=== PATIENT | female | born 1960 | race American Indian/Alaskan Native ===

== ENCOUNTER 2017-05-15 16:55 | Inpatient (IN) | payer MEDICAID, OTHER ==
[2017-05-15 18:43] LABS: BASO # 0.1 K/uL (0.0-0.2); BASO % 0.9 % (0.0-2.0); EOS % 0.6 % (0.0-4.0); HEMATOCRIT 35.8 % (34.0-47.0); LYMPH # 0.8 K/uL (1.0-4.3); LYMPH % 11.4 % (20.0-40.0); MEAN CELL VOLUME 87.3 fL (81.0-99.0); MEAN CORPUSCULAR HEMOGLOBIN 28.7 pg (27.0-31.0); MEAN CORPUSCULAR HGB CONC 32.9 g/dL (33.0-37.0); MEAN PLATELET VOLUME 7.9 fL (7.2-11.7); MONO # 0.5 K/uL (0.0-0.8); MONO % 7.7 % (0.0-10.0); NRBC % 0.1 % (0.0-2.0); RED CELL DISTRIBUTION WIDTH 16.1 % (11.5-14.5); WHITE BLOOD COUNT 7.1 K/uL (4.8-10.8)
[2017-05-15 18:59] LABS: ALCOHOL SERUM < 10 mg/dl (0-10); ALKALINE PHOSPHATASE 124 U/L (38-126); ALT/SGPT 38 U/L (9-52); AST/SGOT 33 U/L (14-36); BILIRUBIN,TOTAL 0.7 mg/dL (0.2-1.3); BLOOD UREA NITROGEN 14 mg/dL (7-17); CALCIUM 9.6 mg/dl (8.6-10.4); CARBON DIOXIDE 25 mmol/L (22-30); CHLORIDE 105 mmol/L (98-107); GFR AFRICAN-AMERICAN > 60; GLUCOSE,RANDOM 83 mg/dL (65-105); POTASSIUM 3.7 mmol/L (3.6-5.2); SODIUM 136 mmol/L (132-148); TOTAL PROTEIN 9.3 g/dL (6.3-8.3)
[2017-05-15 19:04] LABS: ALB/GLOB RATIO 0.8 (1.0-2.1)
[2017-05-15 19:23] LABS: RBC URINE 6 /hpf (0-3); TRANSITIONAL EPITHIAL < 1 /hpf (0-3); URINE BACTERIA OCC (<OCC); URINE BILIRUBIN NEGATIVE (NEGATIVE); URINE BLOOD 1+ (NEGATIVE); URINE COLOR Yellow (YELLOW); URINE GLUCOSE (UA) NORMAL (Normal); URINE KETONE NEGATIVE (NEGATIVE); URINE LEUKOCYTE ESTERASE 2+ Leu/uL (Negative); URINE PROTEIN NEGATIVE (NEGATIVE); URINE UROBILINOGEN NORMAL mg/dL (0.2-1.0); WBC URINE 22 /hpf (0-5)
--- NOTE | 2017-05-15 20:55 | C.PDOC ---
History Of Present Illness 57 year old female with previous Hx of cervical cancer presents to the ED requesting detox for cocaine and ETOH. Patient has been in and out of the hospital recently for CP, reports no CP right now. Patient also c/o painful urination. Patient denies any SI/HI, auditory or visual hallucinations. Time Seen by Provider: 05/15/17 17:48 Chief Complaint (Nursing): Substance Abuse History Per: Patient History/Exam Limitations: no limitations Onset/Duration Of Symptoms: Days Current Symptoms Are (Timing): Gone Suicide/Self Injury Attempted (Context): None Modifying Factor(s): Alcohol, Cocaine Associated Symptoms: denies: Depression, Suicidal Thoughts, Suicidal Plan Recent travel outside of the [place]: No Additional History Per: Patient Past Medical History Reviewed: Historical Data, Nursing Documentation, Vital Signs Vital Signs: Last Vital Signs Temp 98.4 F 05/15/17 17:38 Pulse 56 L 05/15/17 17:38 Resp 18 05/15/17 17:38 BP 118/76 05/15/17 17:38 Pulse Ox 99 05/15/17 21:00 - Medical History PMH: Anemia, Anxiety, CVA, Depression, HTN, Hypercholesterolemia, Schizophrenia , Seizures (ETOH) Denies: Diabetes, Hepatitis, HIV, Chronic Kidney Disease, Sexually Transmitted Disease Surgical History: No Surg Hx Family History: States: Unknown Family Hx - Social History Hx Tobacco Use: No Hx Alcohol Use: Yes Hx Substance Use: Yes (Cocaine) - Immunization History Hx Tetanus Toxoid Vaccination: No Hx Influenza Vaccination: No Hx Pneumococcal Vaccination: No Review Of Systems Constitutional: Negative for: Fever, Chills Cardiovascular: Negative for: Chest Pain Respiratory: Negative for: Cough, Shortness of Breath Gastrointestinal: Negative for: Nausea, Vomiting, Abdominal Pain Genitourinary: Negative for: Incontinence Skin: Negative for: Rash Neurological: Negative for: Weakness, Numbness Psych: Negative for: Depression, Suicidal ideation Physical Exam - Physical Exam Appears: Non-toxic, No Acute Distress Skin: Normal Color, Warm, Dry Head: Atraumatic, Normacephalic Oral Mucosa: Moist Neck: Supple Chest: Symmetrical Cardiovascular: Rhythm Regular, No Murmur Respiratory: Normal Breath Sounds, No Rales, No Rhonchi, No Wheezing Gastrointestinal/Abdominal: Soft, Tenderness (Mild superpubic ), No Guarding, No Rebound Back: No CVA Tenderness Extremity: Normal ROM, No Deformity, No Swelling Neurological/Psych: Oriented x3, Normal Speech, Normal Cognition ED Course And Treatment - Laboratory Results Result Diagrams: 05/15/17 18:35 05/15/17 18:35 O2 Sat by Pulse Oximetry: 99 (On RA) Pulse Ox Interpretation: Normal Medical Decision Making Medical Decision Making: pt is medically cleared for detox admission; pt has uti, recommend cipro 500 mg by mouth every 12 hours for 5 days. 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 - Scribe Statement The provider has reviewed the documentation as recorded by the Scribe Jose Fleming All medical record entries made by the Scribe were at my direction and personally dictated by me. I have reviewed the chart and agree that the record accurately reflects my personal performance of the history, physical exam, medical decision making, and the department course for this patient. I have also personally directed, reviewed, and agree with the discharge instructions and disposition. Decision To Admit - Pt Status Changed To: Hospital Disposition Of: Inpatient - Admit Certification Admit to Inpatient:: After my assessment, the patient will require hospitalization for at least two midnights. This is because of the severity of symptoms shown, intensity of services needed, and/or the medical risk in this patient being treated as an outpatient. - InPatient: Physician Admission Certification: I certify that this patient requires 2 or more midnights of care for the following reason:: for drug detox - . Bed Request Type: Detox Admitting Physician: Quita Ornelas Patient Diagnosis: Cocaine abuse, Alcohol use disorder, severe, dependence, UTI (urinary tract infection)
[2017-05-16] MEDS: Multiple Vitamins Tab PO SCH (10:10)
--- NOTE | 2017-05-16 10:12 | PCM.PSYCH ---
Initial Psychiatric Evaluation - Initial Psychiatric Evaluation Type of Admission: Voluntary Legal Status: Capacity Chief Complaint (in patient's own words): "I'm ready to stop drugs" History of Present Illness and Precipitating Events: Pt is a 57 y/o -[place] female who is here for alcohol detox. Pt is single with 34 y/o daughter. Pt is unemployed and is receiving disability. Pt claims she consumes a "case of beer" everyday for an unspecified amount of time. Pt states that she also uses "too much" cocaine for everyday for the past 6 years. Pt denies opioid, marijuana, and benzo use. Pt stated that she has not been to rehab before and this is the first time she has been to detox. Pt appears in good spirits and appears to want to stop drinking alcohol and using cocaine. Pt is interested in attending an IOP after discharge. [facility] in [place] was discussed with the patient. She has minmal wdw sxs at this point and no hx of seizures or DTs. Past Medical HX: Cervical CA, CVA x4, HTN, Low Bone Marrow, Incontinent Bowels/ Urine Past Psychiatric HX: Anxiety, Depression Family Psychiatric HX: Denies Current Medications: Active Medications Generic Name Dose Route Start Last Admin Trade Name Freq PRN Reason Stop Dose Admin Chlordiazepoxide 25 mg 05/15/17 22:30 05/16/17 00:21 Librium PO 25 mg Q4H PRN Administration Alcohol Withdrawal Ciprofloxacin 500 mg 05/16/17 10:00 Cipro PO BID BRENNA Folic Acid 1 mg 05/16/17 10:00 Folic Acid PO DAILY BRENNA Hydroxyzine HCl 25 mg 05/16/17 00:04 05/16/17 00:21 Atarax PO 25 mg Q6H PRN Administration Anxiety Multivitamins 1 tab 05/16/17 10:00 Hexavitamin PO DAILY BRENNA Thiamine HCl 100 mg 05/16/17 10:00 Vitamin B1 Tab PO DAILY BRENNA Trazodone HCl 50 mg 05/15/17 22:30 05/16/17 00:21 Desyrel PO 50 mg HS PRN Administration Insomnia Past Psychiatric History - Past Psychiatric History Previous Treatment History: Intensive Outpatient Pertinent Medical Hx (Current Medical&Sleep Prob, Allergies): Allergies Allergy/AdvReac Type Severity Reaction Status Date / Time Penicillins Allergy Intermediate RASH Verified 05/15/17 17:43 Naproxen [Naprosyn] 500 mg PO BID PRN 03/17/17 Enalapril Maleate [Vasotec] 10 mg PO BID 05/03/17 Zolpidem [Ambien] 10 mg PO HS PRN 05/03/17 Sulfamethoxazole/Trimethoprim [Bactrim DS 800 mg-160 mg] 1 tab PO BID #13 tab Review of Systems - Neurological Neurological: Weakness - Psychiatric Psychiatric: Abnormal Sleep Pattern, Anxiety, Depression, Difficulty Concentrating. absent: Hallucinations, Homicidal Ideation, Suicidal Ideation Mental Status Examination - Personal Presentation Personal Presentation: Looks stated age - Affect Affect: Broad - Motor Activity Motor Activity: Calm - Reliability in Providing Information Reliability in Providing Information: Good - Speech Speech: Organized - Mood Mood: Depressed - Formal Thought Process Formal Thought Process: No Impairment - Cognitive Functions Orientation: Person, Place, Situation, Time Sensorium: Alert Attention/Concentration: Attentive Judgement: Intact, as evidence by: Insight regarding need for hospitalization Memory: Recent intact, as evidence by: Ability to recall events of the day, Remote intact, as evidenced by: Ability to recall historical events - Risk Risk: Seizure, Withdrawal, Diminished functioning - Strength & Assets Inventory Strength & Assets Inventory: Cooperative DSM 5 DX - DSM 5 DSM 5 Diagnosis: Alcohol use d/o-severe Alcohol withdrawal Cocaine use d/o-severe - Recommended/Plan of Treatment Treatment Recommendations and Plan of Treatment: Librium prn or detox if she starts to wdw Gabapentin for augmentation As needed medications Attend groups and activities Supportive therapy and psychoeducation [place] for abstinence CBT for relapse prevention Encourage MAT Refer to rehab or IOP, and self-help groups Follow up with patient's interest in [facility] in [place] 33 min Projected ELOS: 4-5 Days Prognosis: Good with Treatmet Discharge Plan and Discharge Criteria: No wdw sxs Refer to Rehab Pt interested in IOP [facility]
--- NOTE | 2017-05-17 01:06 | PCM.BM ---
<Meghna Anderson M - Last Filed: 05/17/17 01:04> Treatment Plan Problems - Problems identified on initial assessmt Ineffective Coping Skills Date Initiated: 05/17/17 Time Initiated: 01:05 Assessment reference: NA Status: Active Treatment assets and liabiliti Patient Assests: negotiates basic needs Patient Liabilities: substance abuse, medical problems - Milieu Protocol Maintain good personal hygiene: daily Encourage regular showers, daily Remind patient to perform daily oral care, every shift Assist patient to perform ADL's Maintain personal safety: every shift Educate patient to report safety concerns to staff, every shift Monitor environment for contraband/sharps Medication safety: Monitor for expected outcome, potential side effects: every shift, Assess barriers to learning: every shift, Assess readiness for medication education: every shift Milieu Narrative: Librium prn or detox if she starts to wdw Gabapentin for augmentation As needed medications Attend groups and activities Supportive therapy and psychoeducation [place] for abstinence CBT for relapse prevention Encourage MAT Refer to rehab or IOP, and self-help groups Follow up with patient's interest in [facility] in [place] 33 min Discharge/Continuing Care - Treatment Team Participation Patient/Family/SO Statement: Librium prn or detox if she starts to wdw Gabapentin for augmentation As needed medications Attend groups and activities Supportive therapy and psychoeducation [place] for abstinence CBT for relapse prevention Encourage MAT Refer to rehab or IOP, and self-help groups Follow up with patient's interest in [facility] in [place] 33 min <Elizabeth Winn - Last Filed: 05/17/17 08:45> - Diagnosis (1) Alcohol use disorder, severe, dependence Status: Acute Interventions: 05/17/17 08:45 * Assess 7x/week regarding severity of withdrawal * Educate regarding risks, benefits, side effects and alternatives of medications * Use Motivational Interviewing for abstinence * Use CBT for relapse prevention * Medication management for withdrawal symptoms * Encourage medication assisted treatment * (2) Cocaine abuse Status: Chronic Interventions: 05/17/17 08:45 * Assess 7x/week regarding severity of withdrawal * Educate regarding risks, benefits, side effects and alternatives of medications * Use Motivational Interviewing for abstinence * Use CBT for relapse prevention * Medication management for withdrawal symptoms * Encourage medication assisted treatment *
--- NOTE | 2017-05-17 08:45 | PCM.PYCHDC ---
Mental Status Examination - Mental Status Examination Orientation: Person, Place, Situation, Time Memory: Impaired Mood: Depressed Affect: Constricted Speech: Slurred Attention: WNL Concentration: WNL Association: WNL Fund of Knowledge: WNL Formal Thought Process: No Impairment Suicidal Ideation: No Current Homicidal Ideation?: No Discharge Summary - Discharge Note Reason for Hospitalization: Alcohol Detox Alcohol Withdrawal Consultations:: List each consultation separately and include: 1. Reason for request. 2. Findings. 3. Follow-up Summary of Hospital Course include:: 1. Description of specific treatment plan utilized for patients during their course of treatmen. 2. Summarize the time- course for resolution of acute symptoms and/or regressed behaviors. 3. Describe issues identified and worked on during hospitalization. 4. Describe medication utilized. 5. Describe medical problems identified and treated. 6. Reassessment of suicide risk Summary of Hospital Course: The pt was admitted and started on treatment with psychotherapy, support, psychoeducation and medications. Pt has NOT experienced alcohol withdrawal symptoms for the past 2 days. Pt has drastically improved since initial day of visit PA and CBT used. Pt did not leave her room much and did not attend the program fully. All the risks and benefits of medications are discussed and the patient understood and agreed. The pt improved with the treatments provided BUT she did not understand why we cannot keep her here and she asked for "cocaine detox" which there is no such thing. She did not want to go to rehab b/c of work ([employer]) or medical issues and it was unlikely that she would be accepted as it is. Outt care arranged rx written [facility] arranged - Final Diagnosis (DSM 5) Condition upon Discharge: STABLE DSM 5: Alcohol use d/o - svere Cocaine use d/o - severe Personality d/o Disposition: HOME/ ROUTINE Follow-up Treatment Plan: Continue below medications after discharge. Follow after care plan as discussed. Use relapse prevention skills Return to ER or call 911 if suicidal, homicidal or symptoms relapse. Stay away from stress, alcohol and drugs. See primary doctor regularly and get labs. Prescriptions were sent to her [facility] Counselor arranged for her to go to a correction in [place] Prescriptions/Medication Reconciliation: Ciprofloxacin [Cipro] 500 mg PO BID #14 tab Multivitamins [Hexavitamin] 1 tab PO DAILY #30 tab traZODone [Desyrel] 100 mg PO HS #30 tab - Smoking Cessation Smoking Cessation Medication prescribed: No - Antipsychotic Medications Pt discharged on 2 or more routine antipsychotic medications: No
[2017-05-17] MEDS: Multiple Vitamins Tab PO SCH (09:57)
[2017-05-17 11:45] VITALS: BP 136/81; PULSE 86; RESP 19; TEMP 98.3; O2SAT 97
== END 2017-05-17 11:35 | disposition home or self-care (01) | DRG 750 ==
LOC: C.ER 16:55 → C.7D 20:59
PROVIDERS: ADMIT Psychiatry & Neurology Psychiatry; ATTEND Psychiatry & Neurology Psychiatry
PROC: HZ2ZZZZ Detoxification Services for Substance Abuse Treatment (ICD-10-PCS; principal; 2017-05-15)
PROC: HZ46ZZZ Group Counseling for Substance Abuse Treatment, Psychoeducation (ICD-10-PCS; 2017-05-15)
PROC: HZ59ZZZ Individual Psychotherapy for Substance Abuse Treatment, Supportive (ICD-10-PCS; 2017-05-15)
PROC: GZ3ZZZZ Medication Management (ICD-10-PCS; 2017-05-15)
DX: F10.230 Alcohol dependence with withdrawal, uncomplicated (principal); F14.10 Cocaine abuse, uncomplicated; F20.9 Schizophrenia, unspecified; N39.0 Urinary tract infection, site not specified; I10 Essential (primary) hypertension; E78.00 Pure hypercholesterolemia, unspecified; Z85.41 Personal history of malignant neoplasm of cervix uteri; Z86.73 Personal history of transient ischemic attack (TIA), and cerebral infarction without residual deficits

== ENCOUNTER 2017-05-17 13:27 | Emergency (ER) | payer MEDICAID, OTHER ==
[2017-05-17 13:59] VITALS: RESP 18
[2017-05-17 15:56] LABS: URINE BILIRUBIN NEGATIVE (NEGATIVE); URINE BLOOD NEGATIVE (NEGATIVE); URINE COLOR Yellow (YELLOW); URINE GLUCOSE (UA) NORMAL (Normal); URINE KETONE NEGATIVE (NEGATIVE); URINE LEUKOCYTE ESTERASE TRACE Leu/uL (Negative); URINE PROTEIN NEGATIVE (NEGATIVE); URINE UROBILINOGEN NORMAL mg/dL (0.2-1.0); WBC URINE < 1 /hpf (0-5)
[2017-05-17] MEDS ORDERED: Naproxen 550 mg Tab PO STA (15:56)
--- NOTE | 2017-05-17 16:38 | C.PDOC ---
History Of Present Illness 57 year old female presents to the ER with a complaint of dysuria and suprapubic pain for the past 2-3 days. Patient states she was just discharged from detox this morning and was first diagnosed with a UTI when she was first admitted but did not receive any antibiotics during her stay. Denies vaginal bleeding, vaginal discharge, fever, nausea, vomiting, or diarrhea. Time Seen by Provider: 05/17/17 15:20 Chief Complaint (Nursing): Female Genitourinary History Per: Patient History/Exam Limitations: no limitations Onset/Duration Of Symptoms: Days Current Symptoms Are (Timing): Still Present Quality Of Discomfort: Unable To Describe Associated Symptoms: Urinary Symptoms (Dysuria). denies: Fever, Chills, Nausea , Vomiting, Diarrhea, Other (Vaginal bleeding, Vaginal discharge) Alleviating Factors: None Recent travel outside of the [place]: No Abnormal Vaginal Bleeding: No Past Medical History Reviewed: Historical Data, Nursing Documentation, Vital Signs Vital Signs: Last Vital Signs Temp 98.2 F 05/17/17 17:15 Pulse 71 05/17/17 17:15 Resp 18 05/17/17 17:15 BP 117/82 05/17/17 17:15 Pulse Ox 100 05/17/17 21:35 - Medical History PMH: Anemia, Anxiety, CVA, Depression, HTN, Hypercholesterolemia, Schizophrenia , Seizures (ETOH) Surgical History: No Surg Hx Family History: States: Unknown Family Hx - Social History Hx Tobacco Use: No Hx Alcohol Use: Yes Hx Substance Use: Yes - Immunization History Hx Tetanus Toxoid Vaccination: No Hx Influenza Vaccination: No Hx Pneumococcal Vaccination: No Review Of Systems Except As Marked, All Systems Reviewed And Found Negative. Gastrointestinal: Positive for: Abdominal Pain Genitourinary: Positive for: Dysuria Physical Exam - Physical Exam Appears: Non-toxic, Other (mildly uncomfortable) Skin: Normal Color, Warm, Dry Head: Atraumatic, Normacephalic Eye(s): bilateral: Normal Inspection Oral Mucosa: Moist Chest: Symmetrical, No Tenderness Cardiovascular: Rhythm Regular Respiratory: Normal Breath Sounds, No Rales, No Rhonchi, No Wheezing Gastrointestinal/Abdominal: Soft, Tenderness (Mild suprapubic), No Guarding, No Rebound Back: No CVA Tenderness Neurological/Psych: Oriented x3, Normal Speech ED Course And Treatment O2 Sat by Pulse Oximetry: 100 (Room air) Pulse Ox Interpretation: Normal Progress Note: Urinalysis and urine culture ordered. Naproxen administered for pain, patient started on macrobid and pyridium and instructed to follow up with PMD. Disposition Counseled Patient/Family Regarding: Studies Performed, Diagnosis, Need For Followup, Rx Given - Disposition Referrals: Francisco Montanez MD [Medical Doctor] - Disposition: HOME/ ROUTINE Disposition Time: 16:35 Condition: STABLE Additional Instructions: FOLLOW UP WITH YOUR DOCTOR IN 1-2 DAYS USE MEDICATIONS DIRECTED DRINK PLENTY OF FLUIDS RETURN TO ER IF SYMPTOMS WORSEN Prescriptions: Nitrofurantoin Macrocrystals [Macrobid] 1 cap PO BID #14 cap Phenazopyridine [Pyridium] 100 mg PO TID #9 tab Instructions: Urinary Tract Infection in Women (ED) Forms: [employer] (Swedish) Print Language: MAURITANIAN - Clinical Impression Clinical Impression: UTI (urinary tract infection) - Scribe Statement The provider has reviewed the documentation as recorded by the Scribe Blaine Patton All medical record entries made by the Scribe were at my direction and personally dictated by me. I have reviewed the chart and agree that the record accurately reflects my personal performance of the history, physical exam, medical decision making, and the department course for this patient. I have also personally directed, reviewed, and agree with the discharge instructions and disposition.
[2017-05-17] MEDS ORDERED: Naproxen 550 mg Tab PO ONE (16:50)
[2017-05-17 17:16] VITALS: BP 117/82; PULSE 71; TEMP 98.2
[2017-05-17 21:30] VITALS: O2SAT 100
--- NOTE | 2017-05-20 12:30 | PCM.PYCHPN ---
Psychiatric Progress Note - Psychiatric Progress Note Problems Identified/Issues Discussed: Please note that this patient WAS treated for UTI while in detox and d/c'ed with a rx of Cipro, contrary for what she said. Also, she is NOT discharged b/c she had medical issues, she is discharged b/c she did NOT have any withdrawal symptoms from alcohol - and we monitored her for 2 days. There is no detox for cocaine.
== END 2017-05-17 17:25 | disposition home or self-care (01) ==
LOC: C.ER 13:27
DX: N39.0 Urinary tract infection, site not specified (principal); I10 Essential (primary) hypertension; E78.00 Pure hypercholesterolemia, unspecified; Z86.73 Personal history of transient ischemic attack (TIA), and cerebral infarction without residual deficits

== ENCOUNTER 2017-05-25 10:31 | Emergency (ER) | payer MEDICAID, OTHER ==
[2017-05-25 10:31] VITALS: BMI 25.1
[2017-05-25 10:43] VITALS: O2SAT 100
[2017-05-25 11:37] LABS: RBC URINE 1 /hpf (0-3); URINE BACTERIA RARE (<OCC); URINE BILIRUBIN NEGATIVE (NEGATIVE); URINE BLOOD NEGATIVE (NEGATIVE); URINE COLOR Yellow (YELLOW); URINE GLUCOSE (UA) NORMAL (Normal); URINE KETONE TRACE mg/dL (NEGATIVE); URINE LEUKOCYTE ESTERASE 1+ Leu/uL (Negative); URINE PROTEIN NEGATIVE (NEGATIVE); URINE UROBILINOGEN NORMAL mg/dL (0.2-1.0); WBC URINE 9 /hpf (0-5)
--- NOTE | 2017-05-25 11:42 | C.PDOC ---
History Of Present Illness Rasahd España is a 57 year old female, with a past history of alcohol and cocaine abuse, and frequent UTIs, who was brought by EMS complaining of "abdominal pain " and pain with urination onset prior to arrival. Patient is homeless and was recently discharged [place] [facility] this [place]. However, she states that they didn' t help her. Patient was at [facility], according to EMS the store attendant thought patient was stealing so she began complaining of abdominal pain and called 911. Last alcohol and cocaine use was last night. She denies any nausea, vomit, or diarrhea. No further medical complaints. PMD: Nancy Hewitt Time Seen by Provider: 05/25/17 10:34 Chief Complaint (Nursing): Abdominal Pain History Per: Patient History/Exam Limitations: no limitations Onset/Duration Of Symptoms: Days (x1) Current Symptoms Are (Timing): Still Present Severity: Mild Pain Scale Rating Of: 2 Radiation Of Pain To:: None Associated Symptoms: Urinary Symptoms (pain with urination). denies: Nausea, Vomiting, Diarrhea Recent travel outside of the [place]: No Past Medical History Reviewed: Historical Data, Nursing Documentation, Vital Signs Vital Signs: Last Vital Signs Temp 98.7 F 05/25/17 12:02 Pulse 72 05/25/17 12:02 Resp 16 05/25/17 12:02 BP 110/70 05/25/17 12:02 Pulse Ox 100 05/25/17 14:24 - Medical History PMH: Anemia, Anxiety, CVA, Depression, HTN, Hypercholesterolemia, Schizophrenia , Seizures (ETOH) - [facility] Procedures DETOXIFICATION SERVICES FOR SUBSTANCE ABUSE TREATMENT (05/15/17) GROUP PROCUREMENT BUYER FOR SUBSTANCE ABUSE TREATMENT, PSYCHOEDUCATION (05/15/17) INDIV PSYCHOTHERAPY FOR SUBSTANCE ABUSE TREATMENT, SUPPORT (05/15/17) MEDICATION MANAGEMENT (05/15/17) Family History: States: Unknown Family Hx - Social History Hx Tobacco Use: No Hx Alcohol Use: Yes Hx Substance Use: No - Immunization History Hx Tetanus Toxoid Vaccination: No Hx Influenza Vaccination: No Hx Pneumococcal Vaccination: No Review Of Systems Except As Marked, All Systems Reviewed And Found Negative. Gastrointestinal: Positive for: Abdominal Pain. Negative for: Nausea, Vomiting , Diarrhea Genitourinary: Positive for: Dysuria Physical Exam - Physical Exam Appears: Non-toxic, No Acute Distress Skin: Normal Color, Warm, Dry Head: Atraumatic, Normacephalic Eye(s): bilateral: Normal Inspection, PERRL, EOMI Neck: Normal, Normal ROM Cardiovascular: Rhythm Regular, No Murmur Respiratory: Normal Breath Sounds, No Accessory Muscle Use Gastrointestinal/Abdominal: Normal Exam, Bowel Sounds, Soft, No Tenderness Back: Normal Inspection, No CVA Tenderness Extremity: Normal ROM, No Deformity, No Swelling Neurological/Psych: Oriented x3, Normal Speech Gait: Steady ED Course And Treatment O2 Sat by Pulse Oximetry: 100 (RA) Pulse Ox Interpretation: Normal Medical Decision Making Medical Decision Making: Initial Impression: abdominal pain, UTI Initial Plan: --Urinalysis Prior records reviewed the patient has been to ED multiple times in the past month for similar symptoms, was admitted then discharge for detox. She has multiple vague complaints. My impression is she is homeless and bed seeking. UA shows WBCs and LE. will treat with Cipro. Disposition Counseled Patient/Family Regarding: Diagnosis, Need For Followup - Disposition Disposition: HOME/ ROUTINE Disposition Time: 12:00 Condition: STABLE Additional Instructions: Follow up with clinic in 2-5 days for further evaluation. Take medications as prescribed. Return to the emergency department at any time if symptoms persist or worsen. Prescriptions: Ciprofloxacin [Cipro] 1 tab PO BID #10 tab Instructions: Urinary Tract Infection in Women (GEN) Forms: [facility] (Thai) - POA Present On Arrival: None - Clinical Impression Clinical Impression: UTI (urinary tract infection), Homeless single person - PA / CYLINDER DEVALVER / Resident Statement MD/DO has reviewed & agrees with the documentation as recorded. - Scribe Statement The provider has reviewed the documentation as recorded by the Scribe Documented by Dae Meyers acting as a scribe for TESSA Myles All medical record entries made by the Scribe were at my direction and personally dictated by me. I have reviewed the chart and agree that the record accurately reflects my personal performance of the history, physical exam, medical decision making, and the department course for this patient. I have also personally directed, reviewed, and agree with the discharge instructions and disposition.
[2017-05-25 12:03] VITALS: BP 110/70; PULSE 72; RESP 16; TEMP 98.7
== END 2017-05-25 12:10 | disposition home or self-care (01) ==
LOC: C.ER 10:31
DX: N39.0 Urinary tract infection, site not specified (principal); Z59.0 Homelessness